=== PATIENT | female | born 1995 | race Hispanic/Latino ===

== ENCOUNTER 2024-05-26 10:11 | Day surgery (SDC) | payer OTHER ==
[~2024-05-26] VITALS: Ht 170.2 cm; Wt 95.3 kg
[2024-05-26] VITALS (11 sets, daily range): BP systolic 14–139; BP diastolic 6–85; PULSE 63–73; RESP 14–18
[2024-05-26 11:15] LABS: ALBUMIN 3.5 g/dL (3.5-5.0); BILIRUBIN,TOTAL 1.1 mg/dL (0.2-1.0); CREATININE 0.7 mg/dL (0.5-1.0); POTASSIUM 3.5 mmol/L (3.5-5.1); TOTAL PROTEIN, SERUM 8.2 g/dL (6.0-8.3)
[2024-05-26 11:19] LABS: INR 1.09 (0.85-1.15); PROTHROMBIN TIME 11.7 SEC (9.6-11.6)
[2024-05-26 11:20] LABS: PARTIAL THROMBOPLASTIN TIME 45.6 SEC (26.3-35.5)
[2024-05-26 11:28] LABS: BASOPHILS # (AUTO) 0.02 K/uL (0.00-0.20); BASOPHILS % (AUTO) 0.6 % (0.0-5.0); EOSINOPHILS # (AUTO) 0.01 K/uL (0.00-0.70); EOSINOPHILS % (AUTO) 0.3 % (0.0-8.0); HEMATOCRIT 40.3 % (36-48); IMMATURE GRANULOCYTE ABSOLUTE 0.03 K/uL (0-1); LYMPHOCYTES # (AUTO) 0.9 K/uL (1.0-4.8); LYMPHOCYTES % (AUTO) 26.6 % (21.0-51.0); MEAN CORPUSCULAR HEMOGLOBIN 31.4 pg (27.0-33.0); MEAN CORPUSCULAR HGB CONC 34.2 g/dL (32.0-36.0); MEAN CORPUSCULAR VOLUME 91.6 fL (79-99); MONOCYTES # (AUTO) 0.4 K/uL (0.1-1.0); MONOCYTES % (AUTO) 11.7 % (3.0-13.0); NEUTROPHILS # (AUTO) 2.1 K/uL (1.8-7.7); NEUTROPHILS % (AUTO) 59.9 % (40.0-77.0); PLATELET COUNT (AUTO) 152 K/uL (130-400); RED CELL DISTRIBUTION WIDTH 15.7 % (11.0-15.5); WHITE BLOOD COUNT (AUTO) 3.5 K/uL (4.8-10.8)
[2024-05-26] MEDS ORDERED: AZAT75TA2 PO (11:43)
[2024-05-26] MEDS ORDERED: VITAMIN B12 PO (11:43)
[2024-05-26] MEDS ORDERED: FOLI0.8T3 PO (11:43)
[2024-05-26] MEDS ORDERED: PREDNISONE PO (11:43)
[2024-05-26] MEDS ORDERED: FENTanyl CITRate PF 50 MCG/1 ML 2ML VIAL ONE (13:27)
[2024-05-26] MEDS ORDERED: MIDAZOLAM HCL 1 MG/ML 2ML VIAL ONE (13:27)
[2024-05-26] MEDS ORDERED: LIDOCAINE PF 100MG/5ML (2%) SYRINGE 5ML ONE (13:27)
[2024-05-26] MEDS ORDERED: proPOFol 10 MG/ML 20ML VIAL IV ONE ×2 (13:27→13:33)
[2024-05-26] MEDS ORDERED: ONDANSETRON 4MG INJ ONE (13:28)
== END 2024-05-26 14:55 | disposition home or self-care (01) ==
LOC: DAH 10:11 → ENDO 10:11
PROVIDERS: ATTEND Internal Medicine Gastroenterology
DX: K74.60 Unspecified cirrhosis of liver (principal); K21.00 Gastro-esophageal reflux disease with esophagitis, without bleeding; K29.50 Unspecified chronic gastritis without bleeding; K29.00 Acute gastritis without bleeding; K75.4 Autoimmune hepatitis; Z79.899 Other long term (current) drug therapy
CPT/HCPCS: 43239; 80053; 85025; 85610; 85730; 81025; 36415; 88305; 88312; J3010; J2001; J2250; J2704 ×2; J2405; A4620; A4215 ×2; A4223; A4657 ×2; A4222; A4221; A4663; A4606; J3490